=== PATIENT | female | born 1950 | race Caucasian/White ===

== ENCOUNTER 2022-04-19 17:55 | Inpatient (IN) | payer OTHER ==
[~2022-04-19] VITALS: Ht 167.6 cm; Wt 52.0 kg
[2022-04-19] MEDS ORDERED: ASPirin 81 mg TAB PO ONE (18:30)
[2022-04-19] MEDS ORDERED: dilTIAZem 25 MG/5 ML VIAL IV ONE (18:30)
[2022-04-19 19:05] LABS: Basophils # (auto) 0 10 ^3/uL (0-0.2); Basophils % (auto) 0.7 % (0.0-2.0); Eosinophils # (auto) 0.3 10 ^3/uL (0-0.8); Eosinophils % (auto) 5.4 % (0.0-7.0); Hematocrit 38.2 % (36.0-46.0); Hemoglobin 12.5 g/dL (12.2-16.2); Lymphocytes # (auto) 1.8 10 ^3/uL (0.4-5.4); Lymphocytes % (auto) 32.3 % (10.0-50.0); Mean Corpuscular Hemoglobin 30.3 pg (28.0-32.0); Mean Corpuscular Hgb Conc. 32.7 g/dL (32.0-36.0); Mean Corpuscular Volume 92.7 fL (80.0-100.0); Monocytes # (auto) 0.4 10 ^3/uL (0-1.3); Monocytes % (auto) 6.6 % (0.0-12.0); Neutrophils # (auto) 3.1 10 ^3/uL (1.6-8.6); Nucleated Red Blood Cells % 0.1 %; Red Blood Cells 4.12 10^6/uL (4.0-5.20); Red Cell Distribution Width 13.3 % (11.8-14.3); White Blood Cell 5.7 10^3/uL (4.4-10.8)
[2022-04-19 19:21] LABS: INR 1.03 (0.9-1.15); Partial Thromboplastin Time 24.8 sec (24.6-33.4)
[2022-04-19 19:22] LABS: Albumin 3.8 g/dL (3.4-5.0); Calcium 9.1 mg/dL (8.5-10.1); Potassium 3.3 mmol/L (3.5-5.1)
[2022-04-19 19:25] LABS: BUN/Creatinine Ratio 21.3; Bilirubin, Total 0.4 mg/dL (0.2-1.0); Total Protein 8.4 g/dL (6.4-8.2)
[2022-04-19] MEDS ORDERED: ONDANSETRON HCL 4 MG/2 ML VIAL IV ONE (19:45)
[2022-04-19] MEDS ORDERED: SODIUM CHLORIDE 0.9% 1,000 ML IV ONE (19:45)
[2022-04-19] MEDS ORDERED: SODIUM CHLORIDE 0.9% 500 ML IV ONE (19:45)
[2022-04-19] MEDS ORDERED: POTASSIUM CHL 20MEQ/100ML 100 ML IV ONE (19:45)
[2022-04-19] MEDS ORDERED: DEXTROSE (50%) 50ML SYRG IV PRN ×2 (20:30→20:45)
[2022-04-19] MEDS ORDERED: AZITHROMYCIN 500MG/ 250ML 250 ML IV ONE ×2 (20:30→20:45)
[2022-04-19] MEDS ORDERED: DOCUSATE SOD 100 MG CAP PO PRN ×2 (20:30→20:45)
[2022-04-19] MEDS ORDERED: ONDANSETRON HCL 4 MG/2 ML VIAL IV PRN ×2 (20:30→20:45)
[2022-04-19] MEDS ORDERED: ACETAMINOPHEN 325 MG TAB PO PRN ×2 (20:30→20:45)
[2022-04-19] MEDS ORDERED: HYDROcodone-ACET 5/325MG TAB PO PRN (20:45)
[2022-04-19] MEDS ORDERED: MORPHINE SULFATE INJ 2 MG/ml SYRG IV PRN (21:45)
[2022-04-19] MEDS ORDERED: NITROGLYCERIN 0.4 MG SL TAB SL PRN (21:45)
[2022-04-19] MEDS ORDERED: InsuLIN REG 1unit/0.01ml Soln (100units/ml) SC SCH (22:00)
[2022-04-19] MEDS ORDERED: SODIUM CHLOR 0.9% PF (SALINE LOCK) 10ML VIAL/SYR IV SCH (22:00)
[2022-04-19] MEDS ORDERED: ACCU-CHEK COMFORT CURVE STRIP VI SCH (22:00)
[2022-04-19] MEDS: HYDROcodone-ACET 5/325MG TAB PO PRN (22:18)
[2022-04-20 00:47] LABS: Urine Bacteria NONE SEEN /hpf (None Seen); Urine Blood Negative /uL (Negative); Urine Specific Gravity 1.014 (1.001-1.035); Urine WBC 7 /hpf (0 - 5)
[2022-04-20] MEDS: SODIUM CHLOR 0.9% PF (SALINE LOCK) 10ML VIAL/SYR IV SCH ×4 (01:35→22:06)
[2022-04-20] MEDS: ACCU-CHEK COMFORT CURVE STRIP VI SCH ×5 (01:43→22:08)
[2022-04-20] MEDS: InsuLIN REG 1unit/0.01ml Soln (100units/ml) SC SCH ×5 (01:43→22:00)
[2022-04-20] MEDS: HYDROcodone-ACET 5/325MG TAB PO PRN (01:48)
[2022-04-20] MEDS: dilTIAZem 120MG ER CAP PO SCH (06:42)
[2022-04-20 07:30] LABS: Basophils # (auto) 0 10 ^3/uL (0-0.2); Basophils % (auto) 0.2 % (0.0-2.0); Eosinophils # (auto) 0 10 ^3/uL (0-0.8); Eosinophils % (auto) 0.3 % (0.0-7.0); Hematocrit 38.2 % (36.0-46.0); Hemoglobin 12.5 g/dL (12.2-16.2); Lymphocytes # (auto) 0.9 10 ^3/uL (0.4-5.4); Lymphocytes % (auto) 12.3 % (10.0-50.0); Mean Corpuscular Hemoglobin 30.4 pg (28.0-32.0); Mean Corpuscular Hgb Conc. 32.8 g/dL (32.0-36.0); Mean Corpuscular Volume 92.7 fL (80.0-100.0); Monocytes # (auto) 0.6 10 ^3/uL (0-1.3); Monocytes % (auto) 7.8 % (0.0-12.0); Neutrophils # (auto) 5.8 10 ^3/uL (1.6-8.6); Neutrophils % (auto) 79.4 % (37.0-80.0); Red Blood Cells 4.12 10^6/uL (4.0-5.20); Red Cell Distribution Width 13.4 % (11.8-14.3); White Blood Cell 7.3 10^3/uL (4.4-10.8)
[2022-04-20 07:51] LABS: Albumin 3.7 g/dL (3.4-5.0); BUN/Creatinine Ratio 15.2; Calcium 8.6 mg/dL (8.5-10.1); Potassium 3.9 mmol/L (3.5-5.1)
[2022-04-20 07:56] LABS: Bilirubin, Total 0.4 mg/dL (0.2-1.0); Total Protein 8.3 g/dL (6.4-8.2)
[2022-04-20] MEDS: hydrALAZINE HCL 20 MG/ML VL IV PRN ×2 (08:18→09:36)
[2022-04-20] MEDS ORDERED: AZITHROMYCIN 500MG/ 250ML 250 ML IV SCH (10:00)
[2022-04-20] MEDS ORDERED: ASPirin 81 mg TAB PO SCH (10:00)
[2022-04-20] MEDS ORDERED: dilTIAZem 120MG ER CAP PO SCH (10:00)
[2022-04-20 10:04] LABS: Magnesium 1.6 mg/dL (1.6-2.6)
[2022-04-20] MEDS: ASPirin 81 mg TAB PO SCH (10:46)
[2022-04-20] MEDS: CARVEDILOL 12.5 MG TAB PO SCH ×2 (10:47→22:09)
[2022-04-20] MEDS ORDERED: AMLO-483 PO (12:22)
[2022-04-20] MEDS ORDERED: DONE1TAB88 PO (12:22)
[2022-04-20] MEDS ORDERED: MONT-8 PO (12:22)
[2022-04-20] MEDS ORDERED: ANAS1TAB7 PO (12:22)
[2022-04-20] MEDS ORDERED: cefTRIAXone 1GM/50ML D5W 50 ML IV ONE (12:30)
[2022-04-20 20:00] VITALS: BP 146/81
[2022-04-20 22:00] VITALS: BP 146/81
[2022-04-20] MEDS: AZITHROMYCIN 500MG/ 250ML 250 ML IV SCH (22:07)
[2022-04-20] MEDS: ATORVASTATIN 20 MG TAB PO SCH (22:07)
[2022-04-21] VITALS (7 sets, daily range): BP systolic 122–159; BP diastolic 72–89
[2022-04-21] MEDS: SODIUM CHLOR 0.9% PF (SALINE LOCK) 10ML VIAL/SYR IV SCH ×3 (05:33→22:15)
[2022-04-21] MEDS: InsuLIN REG 1unit/0.01ml Soln (100units/ml) SC SCH ×4 (06:43→22:00)
[2022-04-21] MEDS: ACCU-CHEK COMFORT CURVE STRIP VI SCH ×4 (06:43→22:16)
[2022-04-21 06:46] LABS: Basophils # (auto) 0 10 ^3/uL (0-0.2); Basophils % (auto) 0.4 % (0.0-2.0); Eosinophils # (auto) 0.1 10 ^3/uL (0-0.8); Eosinophils % (auto) 2.6 % (0.0-7.0); Hematocrit 36.7 % (36.0-46.0); Hemoglobin 12.1 g/dL (12.2-16.2); Lymphocytes # (auto) 1.2 10 ^3/uL (0.4-5.4); Lymphocytes % (auto) 25.5 % (10.0-50.0); Mean Corpuscular Hemoglobin 30.4 pg (28.0-32.0); Mean Corpuscular Hgb Conc. 33.1 g/dL (32.0-36.0); Mean Corpuscular Volume 91.6 fL (80.0-100.0); Monocytes # (auto) 0.6 10 ^3/uL (0-1.3); Monocytes % (auto) 12.8 % (0.0-12.0); Neutrophils # (auto) 2.7 10 ^3/uL (1.6-8.6); Neutrophils % (auto) 58.7 % (37.0-80.0); Nucleated Red Blood Cells % 0.1 %; Red Cell Distribution Width 13.4 % (11.8-14.3); White Blood Cell 4.6 10^3/uL (4.4-10.8)
[2022-04-21 07:04] LABS: Calcium 8.6 mg/dL (8.5-10.1); Potassium 3.9 mmol/L (3.5-5.1)
[2022-04-21 07:06] LABS: BUN/Creatinine Ratio 23.2
[2022-04-21] MEDS: cefTRIAXone 1GM/50ML D5W 50 ML IV SCH (09:47)
[2022-04-21] MEDS: dilTIAZem 120MG ER CAP PO SCH (10:11)
[2022-04-21] MEDS: CARVEDILOL 12.5 MG TAB PO SCH ×2 (10:11→22:15)
[2022-04-21] MEDS: HYDROcodone-ACET 5/325MG TAB PO PRN (10:12)
[2022-04-21] MEDS: ASPirin 81 mg TAB PO SCH (10:12)
[2022-04-21] MEDS ORDERED: LISINOPRIL 5 MG TAB PO ONE (20:00)
[2022-04-21] MEDS: AZITHROMYCIN 500MG/ 250ML 250 ML IV SCH (22:15)
[2022-04-21] MEDS: ATORVASTATIN 20 MG TAB PO SCH (22:16)
[2022-04-22] VITALS (7 sets, daily range): BP systolic 94–146; BP diastolic 52–81
[2022-04-22] MEDS: SODIUM CHLOR 0.9% PF (SALINE LOCK) 10ML VIAL/SYR IV SCH ×3 (05:53→22:21)
[2022-04-22] MEDS: InsuLIN REG 1unit/0.01ml Soln (100units/ml) SC SCH ×4 (07:00→22:38)
[2022-04-22] MEDS: ACCU-CHEK COMFORT CURVE STRIP VI SCH ×4 (07:07→22:23)
[2022-04-22] MEDS: cefTRIAXone 1GM/50ML D5W 50 ML IV SCH (09:58)
[2022-04-22] MEDS: ASPirin 81 mg TAB PO SCH (10:02)
[2022-04-22] MEDS: LISINOPRIL 5 MG TAB PO SCH (10:03)
[2022-04-22] MEDS: CARVEDILOL 12.5 MG TAB PO SCH ×2 (10:03→22:00)
[2022-04-22] MEDS: dilTIAZem 120MG ER CAP PO SCH (10:06)
[2022-04-22] MEDS: AZITHROMYCIN 500MG/ 250ML 250 ML IV SCH (22:21)
[2022-04-22] MEDS: ATORVASTATIN 20 MG TAB PO SCH (22:23)
[2022-04-23] MEDS: SODIUM CHLOR 0.9% PF (SALINE LOCK) 10ML VIAL/SYR IV SCH (05:45)
[2022-04-23 05:47] VITALS: BP 143/73
[2022-04-23 05:58] LABS: Basophils # (auto) 0 10 ^3/uL (0-0.2); Basophils % (auto) 0.5 % (0.0-2.0); Eosinophils # (auto) 0.3 10 ^3/uL (0-0.8); Eosinophils % (auto) 6.1 % (0.0-7.0); Hematocrit 34.4 % (36.0-46.0); Hemoglobin 11.5 g/dL (12.2-16.2); Lymphocytes # (auto) 1.6 10 ^3/uL (0.4-5.4); Lymphocytes % (auto) 30.1 % (10.0-50.0); Mean Corpuscular Hemoglobin 30.5 pg (28.0-32.0); Mean Corpuscular Hgb Conc. 33.5 g/dL (32.0-36.0); Mean Corpuscular Volume 91.1 fL (80.0-100.0); Monocytes # (auto) 0.9 10 ^3/uL (0-1.3); Monocytes % (auto) 16.8 % (0.0-12.0); Neutrophils # (auto) 2.5 10 ^3/uL (1.6-8.6); Neutrophils % (auto) 46.5 % (37.0-80.0); Nucleated Red Blood Cells % 0.1 %; Red Blood Cells 3.77 10^6/uL (4.0-5.20); Red Cell Distribution Width 13.4 % (11.8-14.3); White Blood Cell 5.4 10^3/uL (4.4-10.8)
[2022-04-23] MEDS: ACCU-CHEK COMFORT CURVE STRIP VI SCH (06:29)
[2022-04-23] MEDS: InsuLIN REG 1unit/0.01ml Soln (100units/ml) SC SCH (06:29)
[2022-04-23 08:00] VITALS: BP 146/81
[2022-04-23 09:00] VITALS: BP 137/77
[2022-04-23] MEDS: cefTRIAXone 1GM/50ML D5W 50 ML IV SCH (09:00)
[2022-04-23 09:11] LABS: Alanine Aminotransferase 18 U/L (13-56); Albumin 2.9 g/dL (3.4-5.0); Anion Gap 7 (5-15); Aspartate Aminotransferase 23 U/L (15-37); BUN/Creatinine Ratio 24.7; Blood Urea Nitrogen 21 mg/dL (7-18); Calcium 8.5 mg/dL (8.5-10.1); Carbon Dioxide 27 mmol/L (21-32); Chloride 105 mmol/L (98-107); GFR African American 85 mL/min; GFR Non-African American 70 mL/min; Glucose 84 mg/dL (74-106); Potassium 3.7 mmol/L (3.5-5.1); Sodium 139 mmol/L (136-145)
[2022-04-23 09:14] LABS: Alkaline Phosphatase 37 U/L (45-117); Bilirubin, Total 0.3 mg/dL (0.2-1.0); Total Protein 6.7 g/dL (6.4-8.2)
[2022-04-23] MEDS: ASPirin 81 mg TAB PO SCH (10:39)
[2022-04-23] MEDS: dilTIAZem 120MG ER CAP PO SCH (10:40)
[2022-04-23] MEDS: CARVEDILOL 12.5 MG TAB PO SCH (10:40)
[2022-04-23] MEDS: LISINOPRIL 5 MG TAB PO SCH (10:41)
[2022-04-23] MEDS: HYDROcodone-ACET 5/325MG TAB PO PRN (10:59)
[2022-04-23] MEDS ORDERED: AMOX500T86 PO (11:00)
[2022-04-23] MEDS ORDERED: ASPI-325 PO (11:00)
[2022-04-23] MEDS ORDERED: ATOR20TA50 PO (11:00)
[2022-04-23] MEDS ORDERED: CAR125T PO (11:00)
[2022-04-23] MEDS ORDERED: LISI-275 PO (11:00)
== END 2022-04-23 15:00 | disposition home or self-care (01) | DRG 177 ==
LOC: ER 17:55 → TELE 21:40 → TELE-WESTW 04-20 17:22
PROVIDERS: ADMIT Nurse Practitioner Family; ATTEND Internal Medicine Pulmonary Disease
DX: U07.1 COVID-19 (principal); J12.82 Pneumonia due to coronavirus disease 2019; I48.92 Unspecified atrial flutter; I50.20 Unspecified systolic (congestive) heart failure; I69.351 Hemiplegia and hemiparesis following cerebral infarction affecting right dominant side; R73.09 Other abnormal glucose; E03.9 Hypothyroidism, unspecified; E86.0 Dehydration; E87.6 Hypokalemia; I49.3 Ventricular premature depolarization; Z85.3 Personal history of malignant neoplasm of breast; I25.2 Old myocardial infarction; I11.0 Hypertensive heart disease with heart failure; I25.119 Atherosclerotic heart disease of native coronary artery with unspecified angina pectoris; Z92.3 Personal history of irradiation; Z92.21 Personal history of antineoplastic chemotherapy
CPT/HCPCS: 36415; 71045; 80048; 80053; 80061; 81001; 82962; 83036; 83735; 83880; 84439; 84443; 84481; 84484; 85025; 85610; 85730; 87426; 93005; 93306; 96361; 96365; 96375; 99291; G0378; J0696; J1815; J2405; J3480